=== PATIENT | female | born 1945 | race Caucasian/White ===

== ENCOUNTER 2017-01-07 07:22 | Day surgery (SDC) | payer MEDICARE, BC ==
[2017-01-07] MEDS ORDERED: PROPOFOL 500 MG/50 ML EMU IV ONE (08:46)
[2017-01-07] MEDS ORDERED: LIDOCAINE HCL 1% MPF SOL ONE (08:46)
[2017-01-07 09:40] VITALS: O2SAT 97
[2017-01-07 09:51] VITALS: BP 142/80; PULSE 64; RESP 18; TEMP 97.2
== END 2017-01-07 10:43 | disposition home or self-care (01) | DRG 951 ==
LOC: SURG 07:22
PROVIDERS: ATTEND Surgery
DX: Z12.11 Encounter for screening for malignant neoplasm of colon (principal); D12.2 Benign neoplasm of ascending colon; Z80.0 Family history of malignant neoplasm of digestive organs; E11.9 Type 2 diabetes mellitus without complications; K57.30 Diverticulosis of large intestine without perforation or abscess without bleeding; K21.9 Gastro-esophageal reflux disease without esophagitis; K44.9 Diaphragmatic hernia without obstruction or gangrene
CPT/HCPCS: 82962; J2001; J2704

== ENCOUNTER → 2017-09-10 | Outpatient (CLI) | payer MEDICARE, BC | END | disposition home or self-care (01) | DRG 556 | LOC: CONVCARE 14:00 | PROVIDERS: ATTEND Orthopaedic Surgery | DX: M25.561 Pain in right knee (principal); M25.061 Hemarthrosis, right knee ==